=== PATIENT | female | born 1990 | race Caucasian/White ===

== ENCOUNTER 2021-09-22 00:55 | Emergency (ER) | payer OTHER, SELFPAY ==
[2021-09-22] MEDS ORDERED: Lactated Ringer's 1,000 ML ONE ×2 (01:25→02:26)
[2021-09-22] MEDS ORDERED: Ketorolac Tromethamine 30 MG/ML VIAL ONE (01:25)
[2021-09-22 01:56] LABS: Pregnancy Test - Urine (BHCG) Negative (Negative)
[2021-09-22 01:57] LABS: Pregu Control Background? CLEAR/WHITE (CLR/WHITE); Pregu Control Bar Appear? YES (CONTROL BAR); Specific Gravity 1.025 (1.002-1.036)
[2021-09-22 02:03] LABS: Band 7 % (5-11); Eosinophils 2 % (0-10); Hemoglobin 13.1 g/dL (12.0-16.0); Lymphocytes 18 % (21-51); MDiff Complete? YES; Mean Corpuscular HGB CONC 31.9 g/dL (32.0-36.0); Mean Corpuscular Hemoglobin 26.8 pg (27.0-31.0); Mean Corpuscular Volume 84.1 fL (78.0-98.0); Mean Platelet Volume 9.5 fL (7.4-10.4); Monocytes 5 % (0-10); Neutrophil 67 % (42-75); Platelet Count 243 thou/uL (130-400); RBC Distribution Width 12.3 % (11.5-14.5); RBC Morphology Normal
[2021-09-22 02:07] LABS: ALT (SGPT) 11 U/L (8-55); AST (SGOT) 12 U/L (5-34); Albumin 4.1 g/dL (3.5-5.0); Alkaline Phosphatase 63 U/L (40-110); Anion Gap 14 mmol/L (10-20); BUN (Urea Nitrogen) 7 mg/dL (7.0-18.7); Bilirubin, Total 0.9 mg/dL (0.2-1.2); Calc. Creatinine Clearance 0 mL/min (70-130); Calcium 9.3 mg/dL (7.8-10.44); Carbon Dioxide 25 mmol/L (22-29); Chloride 102 mmol/L (98-107); Estimated GFR 109; Globulin 4.1 g/dL (2.4-3.5); Glucose 104 mg/dL (70-105); Potassium 3.3 mmol/L (3.5-5.1); Protein, Total 8.2 g/dL (6.0-8.3); Sodium 138 mmol/L (136-145)
[2021-09-22] MEDS ORDERED: Potassium Chloride 20 MEQ TAB ONE (02:26)
== END 2021-09-22 03:39 | disposition home or self-care (01) ==
LOC: MADERS 00:55
DX: J02.9 Acute pharyngitis, unspecified (principal); R53.81 Other malaise; D72.829 Elevated white blood cell count, unspecified; Z20.822 Contact with and (suspected) exposure to COVID-19
CPT/HCPCS: 80053; 81025; 83605; 83735; 85025; 87040; 87081; 87430; 96361; 96374; J1885; J7120